=== PATIENT | female | born 1990 | race Caucasian/White ===

== ENCOUNTER 2016-09-12 02:07 | Emergency (ER) | payer MEDICAID, OTHER ==
[2016-09-12] MEDS ORDERED: AMOX TR/POTASSIUM CLAVULANATE 875 MG TABLET PO ONE (03:11)
[2016-09-12] MEDS ORDERED: AMOX TR/POTASSIUM CLAVULANATE 875 MG TABLET ONE (03:14)
--- NOTE | 2016-09-12 03:14 | ERNOTE ---
ENT HPI Date of Service: 09/12/16 Presenting Symptoms: dental pain Source: patient, family Exam Limitations: no limitations - Immun/Allergies/Home Medications Immunizations: IMMUNIZATION HX Immunizations Up to Date Yes History of Influenza Vaccine No Allergies/Adverse Reactions: Allergies Allergy/AdvReac Type Severity Reaction Status Date / Time No Known Allergies Allergy Unverified 09/12/16 02:21 Home Medications: HOME MEDICATIONS Chlorhexidine Gluconate [Peridex 0.12%] 15 ml MM BID 09/12/16 [Last Taken Unknown] Citalopram Hydrobromide [Citalopram HBr] 20 mg PO DAILY 09/12/16 [Last Taken Unknown] Clindamycin HCl 300 mg PO Q6H 09/12/16 [Last Taken Unknown] Omeprazole 40 mg PO DAILY 09/12/16 [Last Taken Unknown] Tramadol HCl [Rybix Odt] 50 mg PO Q6H 09/12/16 [Last Taken Unknown] - History of Present Illness Date (Duration): 09/12/16 Time (Timing): 03:05 Severity: Present: moderate ENT Location: Present: dental Prearrival Treatment: Present: prescription meds Modifying Factors - Improves: Reports: antibiotics, medication Modifying Factors - Worsens: Reports: nothing Associated Symptoms - ENT: Reports: poor fluid intake, sore throat, jaw swelling Prior Treament: Reports: recently seen - patient 26-year-old female who had wisdom teeth extracted this past Monday. Patient has noted significant pain and swelling localized to her left jaw and anterior neck. Patient evaluated by dentist who removed the above and placed on clindamycin and tramadol. Patient states ibuprofen has helped more than anything else for pain. She reports no improvement of symptoms since been initiated on clindamycin 2 days ago. Review of Systems - Review of Systems Constitutional: Present: no symptoms reported EYE: Present: no symptoms reported ENT: Present: other - pain throat pain sore throat patient with left jaw and upper neck pain Respiratory: Present: no symptoms reported Cardiology: Present: no symptoms reported Gastrointestinal/Abdominal: Present: no symptoms reported Genitourinary: Present: no symptoms reported Musculoskeletal: Present: neck pain Skin: Present: no symptoms reported Neurological: Present: no symptoms reported Endocrine: Present: no symptoms reported Hematologic/Lymphatic: Present: no symptoms reported Psych: Present: no symptoms reported - Patient's Past Medical History Patient History - Medical: Depression, GERD Patient History - Cardiac/Respiratory: Other Patient History - Cancer: No Hx of Cancer Patient History - Surgical Procedures: Other Patient History - Other: None LMP (females 10-50): last week LMP (Calendar): 08/29/16 - Social History Living Situations: significant other Abuse History: No History of abuse Psych History: No pertinent hx Smoking Status: Former smoker Smoking Stop Date: 09/09/16 Alcohol Use: none Drug Use: none - Immunizations Immunizations Up to Date: Yes History of Influenza Vaccine: No Physical Exam - Physical Exam General Appearance: Present: wd/wn, alert, mild distress Eye Exam: Normal inspection: bilateral - no ophthalmologic abdomen is noted on exam today, PERRL: bilateral, EOMI: bilateral Ears, Nose, Throat: Present: other - patient with no obvious tenderness localized to sites of recent wisdom tooth extraction. Pain appears to be localized to the left submandibular and anterior cervical chain lymph nodes. Patient with moderate difficulty opening mouth due to pain in the area described as well as TMJ area. There is no sign of abscess present or dry socket. Neck: Present: full range of motion, lymphadenopathy (R), lymphadenopathy (L), other - left-sided anterior cervical lymphadenopathy greater than right. Respiratory: Present: no respiratory distress, normal breath sounds, no accessory muscle use, chest nontender, lungs clear Cardiovascular/Chest: Present: regular rate, rhythm, no murmur, normal peripheral pulses Peripheral Pulses: N=norm/S=strong/W=weak/B=bound/A=absent: Carotid (R): Normal , Carotid (L): Normal, Radial (R): Normal, Radial (L): Normal Gastrointestinal/Abdominal: Present: normal bowel sounds, nontender, nondistended, soft, no organomegaly Rectal Exam: Present: deferred Back Exam: Present: normal inspection, normal range of motion, no CVA tenderness , no vertebral tenderness Neurological Exam: Present: alert, oriented, normal mood/affect, no motor/ sensory deficits Skin Exam: Present: normal color, warm/dry Lymphatic Exam: Present: other - only adenopathy in areas outlined above. ED Progress - Vital Signs Patient's Vital Signs:: I have reviewed the patient's vital signs. Vital Signs: Vital Signs 09/12/16 02:12 Temperature 36.5 C Pulse Rate 77 Respiratory 14 Rate Blood Pressure 124/75 O2 Sat by Pulse 98 Oximetry - Progress/Reassessment Chief Complaint: Dental Problem Departure Clinical Impression: Tooth ache - Departure Disposition: Home self-care Condition: Good Additional Instructions: Please add Augmentin to your current clindamycin. taking ibuprofen 800 mg with food every 8 hours. For additional pain relief you may add 1 tramadol T or ibuprofen dose. Take ibuprofen with food as mentioned above with follow-up by her dentist in 2-3 days if not markedly improved. Come back sooner should you get worse. Referrals: Kitty Medina FNP [Primary Care Provider] -
[2016-09-12 03:23] VITALS: BP 118/74
== END 2016-09-12 03:20 | disposition home or self-care (01) ==
LOC: ER 02:07
DX: K08.89 Other specified disorders of teeth and supporting structures (principal); Z87.891 Personal history of nicotine dependence; F32.9 Major depressive disorder, single episode, unspecified; K21.9 Gastro-esophageal reflux disease without esophagitis

== ENCOUNTER 2020-08-07 05:01 | Inpatient (IN) ==
[2020-08-07] MEDS: RINGER'S SOLUTION,LACTATED 1,000 ML IV PRN ×2 (05:15→08:25)
[2020-08-07] MEDS ORDERED: OXYTOCIN/0.9 % SODIUM CHLORIDE 30 UNITS/500 ML BAG IV ONE (06:49)
[2020-08-07] MEDS ORDERED: NALOXONE HCL 0.4 MG/ML VIAL IV PRN (07:17)
[2020-08-07] MEDS ORDERED: HYDROmorphone HCL 2 MG/ML VIAL IV PRN (07:17)
[2020-08-07] MEDS ORDERED: diphenhydrAMINE HCL 50 MG/ML VIAL IV PRN (07:17)
[2020-08-07] MEDS ORDERED: PROCHLORPERAZINE EDISYLATE 5 MG/ML VIAL IV PRN (07:17)
[2020-08-07] MEDS ORDERED: ONDANSETRON HCL/PF 2 MG/ML VIAL IV PRN ×2 (07:17→10:56)
[2020-08-07] MEDS ORDERED: ceFAZolin SODIUM 1 GM VIAL ONE (07:23)
--- NOTE | 2020-08-07 07:30 | ANES ---
Anesthesia Pre Procedure Eval Vitals/Labs: Last Vital Signs Temp 37.1 C 08/07/20 05:40 Pulse 85 08/07/20 05:40 Resp 16 08/07/20 05:40 BP 121/56 08/07/20 05:40 Pulse Ox 99 08/07/20 05:40 HOME MEDICATIONS prenat.vits,dmitri,ojk-snmv-fzyov 1 tab PO DAILY 01/09/20 [Last Taken 08/06/20] blood-glucose meter See Rx Instructions .ROUTE .MEDSUPPLY #1 ea 01/10/20 [Last Taken Unknown] lancets 30 gauge See Rx Instructions [id number] .MEDSUPPLY #100 ea 02/14/20 [Last Taken Unknown] blood sugar diagnostic See Rx Instructions [id number] .MEDSUPPLY #100 ea 06/03/20 [Last Taken Unknown] insulin syringe-needle U-100 0.3 mL 31 gauge x 5/16" See Rx Instructions .ROUTE .MEDSUPPLY #90 ea 06/03/20 [Last Taken Unknown] ascorbate calcium (vitamin C) 500 mg tablet 500 mg PO BID 07/02/20 [Last Taken 08/06/20] ferrous sulfate 325 mg (65 mg iron) tablet 325 mg PO BID 07/02/20 [Last Taken 08/06/20] insulin syringe-needle U-100 1 mL 25 gauge x 5/8" See Rx Instructions .ROUTE .MEDSUPPLY #100 ea 07/16/20 [Last Taken Unknown] insulin NPH isoph U-100 human 100 unit/mL subcutaneous suspension 60 unit SUBCUT HS #10 ml 07/20/20 [Last Taken 08/07/20] hydrocodone 5 mg-acetaminophen 325 mg tablet 1 tab PO Q6H PRN #14 tab 08/06/20 [Last Taken Unknown] Allergies/Adverse Reactions: Allergies Allergy/AdvReac Type Severity Reaction Status Date / Time No Known Allergies Allergy Verified 08/07/20 06:55 - Planned Procedure Planned Procedure: Primary Section with bilateral salpingect Medication List Reviewed:: Yes Allergies Verified: Yes Medical History (Last Reviewed 08/07/20 @ 07:29 by Galindo Mayfield CRNA) Eczema Onset Date: Unknown breasts Rosacea Onset Date: Unknown PCOS (polycystic ovarian syndrome) Onset Date: Unknown Surgical History (Last Reviewed 08/07/20 @ 07:29 by Galindo Mayfield CRNA) [place] teeth extracted Onset Date: ~2014 Family History (Last Reviewed 08/07/20 @ 07:29 by Galindo Mayfield CRNA) Mother Hypertension Father CVA (cerebral vascular accident) Grandfather CVA (cerebral vascular accident) Aunt Myocardial infarction Aunt Thyroid cancer Uncle Colon cancer - Family Anesthesia History Family History:: no untoward family reactions to anesthesia, no familial bleeding tendencies, no family history of clotting disorders, no family history of premature - Airway/Neck/Teeth Within Normal Limits:: Yes Teeth Condition: intact Mallampatti Score: 3 Thyromental (T-M) distance: > 6 cm Mandibulo Hyoid distance: > 3 cm - Respiratory Respiratory History: bronchitis Respiratory Physical: lungs clear Smoking Status: Current every day smoker Discussed smoking cessation including day of surgery: Yes Sleep Apnea currently treated: No Sleep Apnea by current assessment: No Discussed Risks/Treatment of TEO: No - Cardiovascular Tolerate Activity: Good Heart Sounds: S1 & S2, Regular - Gastrointestinal NPO since: mn - Anesthesia Assessment and Plan ASA Class: PS, II Anesthesia Type Plan: Block - Bilateral ultrasound guided TAP blocks for postop analgesia, Spinal
[2020-08-07] MEDS ORDERED: BUPIVACAINE HCL/EPINEPHRINE 50 ML VIAL ONE (07:35)
[2020-08-07] MEDS ORDERED: fentaNYL CITRATE/PF 50 MCG/ML AMPUL ONE (07:35)
[2020-08-07] MEDS ORDERED: MIDAZOLAM HCL/PF 5 MG/ML VIAL ONE (07:35)
[2020-08-07] MEDS: OXYTOCIN/0.9 % SODIUM CHLORIDE 30 UNITS/500 ML BAG IV ONE ×2 (08:30→17:21)
--- NOTE | 2020-08-07 09:46 | OR ---
Operative Report - Dictated Report Narrative: Date of delivery: 08/07/2020 Time of delivery: 825 Gender: male weight: 3531 grams APGARS: 12/24 Preoperative diagnosis: IUP at 37w 4d, poorly controlled gestational diabetes on insulin, LGA, polyhydramnios, anemia, smoker, transverse presentation, desires sterilization Postoperative diagnosis: same Procedure: Primary delivery with vacuum assistance, bilateral salpingectomy Surgeon: Dr. Casillas Anesthesia: Spinal Anesthesiologist: Galindo Mayfield CRNA Description of the procedure: The patient was taken to the operating room where spinal anesthesia was induced. She was then prepped and draped in the supine position in the standard surgical fashion. Attention was then turned to the abdomen. A Pfannestiel skin incision was made. The incision was carried through the subcutaneous tissue. The fascia was incised in the midline. The fascial incision was extended sharply bilaterally. The fascia was tented up with Julieta clamps. The fascia was dissected off the underlying rectus muscles. The rectus muscles were incised in the midline. The peritoneum was entered sharply. A large Ciro retractor was placed in the abdomen. The uterus was incised in a low transverse fashion. There was a lot of bleeding as I was cutting through the lower uterine segment and thus due to the need to expedite delivery and lack of visualization from blood a laceration to the scalp occurred. There was a large amount of clear amniotic fluid. The head was brought to the uterine incision from the transverse position. A vacuum was placed to aid with delivery. The head delivered without difficulty after placing the vacuum. The shoulders delivered without difficulty followed by the rest of the infant. The cord was clamped and cut and the infant was handed off to the attending pediatric staff. Cord blood was collected. The placenta was delivered by expression, intact, and without difficulty. The uterus was cleared of all clots and debris. The uterine incision was closed with 2 layers of 0-vicryl. Hemostasis was adequate. Attention was then turned to the left fallopian tube. The left fallopian tube was cut along the mesosalpinx all the way to the cornual region. The same procedure was repeated on the right and the fallopian tubes were sent for pathological analysis. The Ciro retractor was removed from the abdomen. The subfascial tissues and the rectus muscles were made hemostatic. Hemostasis of the right border of the rectus muscles required several interrupted 2-0 figure of eight sutures. The fascia was closed with 0-vicryl. The subcutaneous tissue was closed with 2-0 vicryl. The skin was closed with 3-0 monocryl on a Narayan needle. [place] griffiths was placed over the incision. The incision was covered with a dressing. All sponge, lap, and needle counts were correct. The patient tolerated the procedure well. She was transferred to the recovery room in stable condition. EBL: 1000 mL Complications: none Specimens: cord blood, placenta, fallopian tubes History for MU Definition: * The number of deliveries resulting in a live the patient experienced prior to current hospitalization * The previous delivery of live twins or any live multiple gestation is considered one live event. *If primagravida or nulliparous is documented select zero for the number of previous live births. Live Events: 0
[2020-08-07] MEDS ORDERED: HYDROmorphone HCL 2 MG/ML VIAL ONE (09:51)
--- NOTE | 2020-08-07 09:51 | ANES ---
Post Anesthesia Discharge - Transfer of Care Transfer of Care handoff given to nurse: Yes - Discharge from PACU Discharge from PACU when meets criteria: Yes - Discharge to ASU Discharge to ASU-no complications/pt stable: Yes
--- NOTE | 2020-08-07 09:53 | ANES ---
Anesthesia Procedure Note Procedure Note: ANESTHESIA PROCEDURE NOTE Date of Procedure: 08/07/2020. Time of procedure: 934. Performed by: Galindo Mayfield CRNA [facility] Chief: None. Preprocedure diagnosis: Primary . Post procedure diagnosis: Same. Procedure: Bilateral ultrasound-guided transversus abdominis plane block for postop analgesia. Indications: The patient is a 30-year-old female post section. Findings: See below. Details of the procedure: ChloraPrep was used on the patient's abdomen and the procedure was performed under sterile technique. The right abdominal fascial layer between the internal oblique muscle and the transversus abdominis muscles was identified under ultrasound guidance. A 21-gauge 4 inch block needle was inserted under ultrasound guidance to the target fascial plane. 15 mL's of 0.5% bupivacaine plus epinephrine 1:200,000 was injected after negative aspiration for blood. The needle was removed intact and the procedure was then repeated at the left side. No complications were noted. The images were retained in the hospital medical database. EBL: Minimal. Fluids: N/A. Specimen: N/A. Post procedure condition: The patient tolerated the procedure well. No complications were noted. Thank you for this consultation. Galindo Mayfield CRNA
--- NOTE | 2020-08-07 10:23 | ANES ---
Post Anesthesia Assessment - Vital Signs Vitals: Last Vital Signs Temp 36.8 C 08/07/20 09:55 Pulse 103 H 08/07/20 09:55 Resp 14 08/07/20 09:55 BP 115/64 08/07/20 09:55 Pulse Ox 100 08/07/20 09:55 Airway Patency: Normal - Mental Status Level Of Consciousness: Awake - Pain Level Pain Score: 7 - N/V Assessment Nausea/Vomiting Presence: None Dehydration:: No
[2020-08-07] MEDS ORDERED: SENNOSIDES 8.6 MG TABLET PO PRN (10:56)
[2020-08-07] MEDS ORDERED: SIMETHICONE 80 MG TAB.CHEW PO PRN (10:56)
[2020-08-07] MEDS ORDERED: BISACODYL 10 MG SUPP.RECT RC PRN (10:56)
[2020-08-07] MEDS: KETOROLAC TROMETHAMINE 30 MG/ML VIAL IV PRN ×2 (12:09→18:51)
[2020-08-07] MEDS: HYDROcodone/ACETAMINOPHEN 1 EACH TABLET PO PRN ×3 (17:12→23:01)
[2020-08-07] MEDS: NICOTINE 21 MG PATC TD SCH (17:19)
[2020-08-07] MEDS: DOCUSATE SODIUM 100 MG CAPSULE PO SCH (20:33)
[2020-08-08] MEDS: HYDROcodone/ACETAMINOPHEN 1 EACH TABLET PO PRN ×4 (03:14→15:17)
[2020-08-08] MEDS: IBUPROFEN 800 MG TABLET PO PRN ×3 (03:15→18:39)
[2020-08-08] MEDS ORDERED: ceFAZolin SODIUM 1 GM VIAL IV PRN (06:00)
[2020-08-08] MEDS: DOCUSATE SODIUM 100 MG CAPSULE PO SCH ×3 (07:14→22:14)
--- NOTE | 2020-08-08 09:26 | PN ---
Subjective - Date and Time Seen Date: 08/08/20 Time: 09:24 Subjective Narrative: Patient without complaints Objective Objective Narrative: See vital signs - Review of Systems Generalized/Overall Review: Reports: No Symptoms Reported Misc: All systems neg except as marked - Vitals Vitals: Last Vital Signs Temp 36.4 C 08/08/20 03:17 Pulse 72 08/08/20 03:17 Resp 16 08/08/20 03:17 BP 114/66 08/08/20 03:17 Pulse Ox 100 08/08/20 03:17 - Exam Constitutional: Present: Alert, Oriented x3, Cooperative, No distress ENT Exam: Present: hearing grossly normal Abdomen: Present: soft, nontender, nondistended - incision c/d/i /Rectal: Present: Exam deferred Extremity: Present: non-tender, no calf tenderness Skin Exam: Present: normal color, warm/dry, no cyanosis Neurologic: Present: alert, normal mood/affect, oriented x 3 Appearance: Present: appropriate appearance, appropriate insight, neat, no memory impairment Eye contact: Present: cooperative, good eye contact, normal speech Thoughts: Present: normal thought pattern Cauti Physician Documentation - Urinary Catheter Management Urethral ([place]) Urethral Indwelling: No Date of Insertion: 08/07/20 Time of Insertion: 08:00 Date of Removal: 08/07/20 Time of Removal: 20:31 Assessment/Plan Plan Narrative: POD 1 s/p primary delivery Doing well Discharge POD 3
[2020-08-08] MEDS: diphenhydrAMINE HCL 25 MG CAPSULE PO PRN (18:37)
[2020-08-08] MEDS: NICOTINE 21 MG PATC TD SCH (22:13)
[2020-08-09] MEDS: IBUPROFEN 800 MG TABLET PO PRN ×2 (02:36→12:30)
[2020-08-09] MEDS: HYDROcodone/ACETAMINOPHEN 1 EACH TABLET PO PRN ×3 (02:37→12:30)
[2020-08-09] MEDS: diphenhydrAMINE HCL 25 MG CAPSULE PO PRN (07:44)
[2020-08-09] MEDS: DOCUSATE SODIUM 100 MG CAPSULE PO SCH ×2 (07:44→08:14)
[2020-08-09 08:13] VITALS: BP 110/59
--- NOTE | 2020-08-09 11:39 | PN ---
Subjective - Date and Time Seen Date: 08/09/20 Time: 11:36 Subjective Narrative: Patient without complaints Objective Objective Narrative: See vital signs - Review of Systems Generalized/Overall Review: Reports: No Symptoms Reported Misc: All systems neg except as marked - Vitals Vitals: Last Vital Signs Temp 36.4 C 08/09/20 08:01 Pulse 89 08/09/20 08:01 Resp 16 08/09/20 08:01 BP 110/59 08/09/20 08:01 Pulse Ox 100 08/09/20 08:01 - Exam Constitutional: Present: Alert, Oriented x3, Cooperative, No distress ENT Exam: Present: hearing grossly normal Neck: Present: normal inspection Abdomen: Present: soft, nontender, nondistended - incision c/d/i Extremity: Present: non-tender, no calf tenderness Skin Exam: Present: normal color, warm/dry, no cyanosis Neurologic: Present: alert, normal mood/affect, oriented x 3 Appearance: Present: appropriate appearance, appropriate insight, neat, no memory impairment Eye contact: Present: cooperative, good eye contact, normal speech Thoughts: Present: normal thought pattern Cauti Physician Documentation - Urinary Catheter Management Urethral ([place]) Urethral Indwelling: No Date of Insertion: 08/07/20 Time of Insertion: 08:00 Date of Removal: 08/07/20 Time of Removal: 20:31 Assessment/Plan Plan Narrative: POD 2 s/p primary delivery, salpingectomies Doing well Pt desires discharge today
--- NOTE | 2020-08-09 11:42 | DS ---
OB Discharge Summary Delivery Date: 08/07/20 Delivery Time: 08:26 :: 1 Para:: 1 Gestational weeks:: 37 Gestational days:: 4 Intrapartum Procedures: Primary Section, Delivery-Low Transverse, Anesthesia - Spinal Procedures: None /OP Complications: GDM Discharge Diagnosis: Term -Delivered, GDM - Insulin Dependent - Discharge Information Date of Discharge: 08/09/20 Hospital Course: The patient presented for a scheduled primary delivery due to transverse presentation and poorly controlled GDM beyond 37 weeks gestation. Her delivery was uncomplicated. course was uncomplicated. Discharge Location: Home Disposition: Home self-care Referrals: Nas Dunbar ARNP [Primary Care Provider] - Activity on Discharge:: Activity as tolerated, Pelvic Rest Discharge Diet: General/regular food Additional Patient Instructions (free text): Jerrell, Your follow up appt is on 09/08/20 @ 9:00AM with Dr Casillas in the [facility]. Please call [facility] tomorrow to make John follow up appointment. He needs to be seen on Monday - [phone] Rest when he rest. Bottle feed him every 3 to 4 hours. Burping well. Always lay him on his back to sleep in his own sleeping area. No extra pillows, blankets or stuffed animals. No co sleeping. No smoking around baby or in vehicle. If smoke please go outside and need to change clothes before touching or holding to reduce second hand smoke exposure. weight - 7 lb 12.5 oz Todays weight - 7 lb 5.1 oz Blood type is B+. He passed his CHD screen. He did not pass his hearing screen so he will need to come back this week for a repeat screen. Come to OB department for this screening. Congratulations on your new addition. Please don't hesitate to call with any questions or concerns. Complete Home Medications List: Complete Home Medication List: prenat.vits,dmitri,dqw-[id number]-uydvm 1 tab PO DAILY 01/09/20 hydrocodone 5 mg-acetaminophen 325 mg tablet 1 tab PO Q6H PRN #14 tab 08/06/20 HYDROcodone/ACETAMINOPHEN [[place] 5-325] 2 ea PO Q4H PRN tab 08/08/20 - Plan Discharge to:: Home Comment:: Routine Discharge Instructions Follow up in office in:: Other - 4 weeks - Information Weight (Grams): 3,531 Infant Sex: Male Score 1 min: 9 Score 5 min: 9 Infant Complications: None, Polyhydraminos, Other - LGA
[2020-08-09] MEDS: NICOTINE 21 MG PATC TD SCH (12:31)
== END 2020-08-09 13:05 | disposition home or self-care (01) | DRG 785 ==
LOC: OB 05:01
PROVIDERS: ADMIT Obstetrics & Gynecology; ATTEND Obstetrics & Gynecology